=== PATIENT | male | born 1980 | race Native Hawaiian/Other Pacific Islander ===

== ENCOUNTER 2018-08-07 18:27 | Emergency (ER) | payer OTHER ==
[~2018-08-07] VITALS: Ht 190.5 cm; Wt 93.0 kg
[2018-08-07 19:38] LABS: PLATELET COUNT 374 K/uL (142-355)
[2018-08-07 19:50] LABS: POTASSIUM 3.8 mmol/L (3.6-5.2)
[2018-08-08 00:19] VITALS: BP 140/93; TEMP 99.2
== END 2018-08-08 00:19 | disposition short-term general hospital (02) ==
LOC: ED 18:27
PROVIDERS: Emergency Medicine
DX: K37 Unspecified appendicitis (principal); N13.2 Hydronephrosis with renal and ureteral calculous obstruction
CPT/HCPCS: 74022; 80053; 81000; 83605; 85027; 87040; 96365; 96374; 96376; 99285; J2270; J2405; J2543; J2930

== ENCOUNTER 2018-10-13 19:36 | Emergency (ER) | payer OTHER ==
[~2018-10-13] VITALS: Ht 190.5 cm; Wt 94.3 kg
[2018-10-13 20:34] LABS: PLATELET COUNT 449 K/uL (142-355)
[2018-10-13 20:42] LABS: POTASSIUM 4.3 mmol/L (3.6-5.2)
[2018-10-13 21:58] VITALS: BP 122/88; TEMP 98.3
== END 2018-10-13 21:59 | disposition home or self-care (01) ==
LOC: ED 19:36
PROVIDERS: Internal Medicine
DX: N13.2 Hydronephrosis with renal and ureteral calculous obstruction (principal); K80.80 Other cholelithiasis without obstruction; R31.9 Hematuria, unspecified
CPT/HCPCS: 36415; 80053; 81000; 85027; 96374; 96376; 99284; J2270; J2405